=== PATIENT | female | born 1980 | race Caucasian/White ===

== ENCOUNTER 2017-11-18 16:42 | Emergency (ER) | payer OTHER ==
[~2017-11-18] VITALS: Ht 172.7 cm; Wt 82.0 kg
[2017-11-18 18:40] VITALS: BP 133/87
== END 2017-11-18 18:41 | disposition home or self-care (01) ==
LOC: EME 16:42
DX: S71.132A Puncture wound without foreign body, left thigh, initial encounter (principal); W54.0XXA Bitten by dog, initial encounter; Y93.01 Activity, walking, marching and hiking; Z23 Encounter for immunization; Z20.3 Contact with and (suspected) exposure to rabies; Z29.14 Encounter for prophylactic rabies immune globulin
CPT/HCPCS: 99281; 99283

== ENCOUNTER 2017-11-25 18:00 | Emergency (ER) | payer OTHER ==
[~2017-11-25] VITALS: Ht 177.8 cm; Wt 83.4 kg
[2017-11-25 19:59] VITALS: BP 126/80
== END 2017-11-25 20:00 | disposition home or self-care (01) ==
LOC: EME 18:00
PROC: 3E0234Z Introduction of Serum, Toxoid and Vaccine into Muscle, Percutaneous Approach (ICD-10-PCS; principal; 2017-11-25)
DX: Z20.3 Contact with and (suspected) exposure to rabies (principal); Z23 Encounter for immunization
CPT/HCPCS: 99281; 99283